=== PATIENT | female | born 1955 | race Caucasian/White ===

== ENCOUNTER 2017-07-01 12:57 | Observation (INO) ==
[2017-07-01] MEDS ORDERED: Nitroglycerin 0.4 MG TAB.SUBL SL PRN ×2 (13:18→15:10)
[2017-07-01] MEDS ORDERED: Aspirin 81 MG TAB.CHEW PO STA (13:18)
--- NOTE | 2017-07-01 13:28 | Emergency Department Note ---
Disposition Clinical Impression: Pneumothorax, Chest pain Disposition: Admitted As Inpatient Condition: Good Reasons to Return/Additional Instructions: Continue to follow through primary care provider for your hypertension. Referrals: NONE,PCP [Primary Care Provider] - Chest Pain HPI - General Chief Complaint: ED Chest Pain Stated Complaint: heartburn Time Seen by Provider: 07/01/17 13:05 Source: patient Mode of arrival: ambulatory Limitations: no limitations Vital Signs Reviewed: Yes Nursing Notes Reviewed: Yes - History of Present Illness HPI Narrative: Patient states his heartburn off and on for the past 2 days. Started on Sunday and she took some antacid that did not seem to help. She could have her 's Zantac that did not help. Today it seemed to becoming more regular and more pressure sensation. She has never had anything like this before. She denies any nausea vomiting shortness of breath or other complaints. Pt complaint: chest pain Onset (ago): day(s) (2) Duration: intermittent Onset: during rest Pain Location: substernal Severity scale (1-10): 4 Quality: tightness, other (pressure) Pain Radiation: none Improves with: nothing Worsens with: nothing Associated symptoms: Denies: nausea, vomiting, diaphoresis, dyspnea, sense of impending doom, syncope, palpitations, fever, cough, leg swelling Treatments prior to arrival chest pain: other (antacids) - Related Data Home Medications Medication Instructions Recorded Confirmed No Known Home Drugs 07/01/17 07/01/17 Allergies Allergy/AdvReac Type Severity Reaction Status Date / Time No Known Allergies Allergy Verified 10/18/16 05:25 All systems ED: reviewed and negative except as stated. Review of Systems: As Per HPI Constitutional: Denies: fever, chills, weakness, weight change Eyes: Denies: eye pain, eye discharge, vision change ENT ED: Denies: ear pain, throat pain, dental pain, hearing loss, epistaxis, congestion, dysphagia Cardiovascular: Reports: as per HPI, chest pain. Denies: palpitations, dyspnea on exertion, edema, syncope Respiratory: Denies: cough, dyspnea, wheezes, hemoptysis, stridor Gastrointestinal: Denies: abdominal pain, nausea, vomiting, diarrhea, constipation, hematemesis, melena, hematochezia Genitourinary: Denies: dysuria, frequency, hematuria, discharge Musculoskeletal: Denies: back pain, neck pain, arthralgia, myalgia Integumentary: Denies: rash, abrasion, lesions Neurological: Denies: headache, weakness, numbness, paresthesias, confusion, abnormal gait, vertigo Psychiatric: Denies: anxiety, depression, suicidal thoughts, homicidal thoughts , auditory hallucinations, visual hallucinations Endocrine: Denies: fatigue Hematological/Lymphatic: Denies: easy bleeding, easy bruising Allergic/Immunologic: Denies: facial swelling, urticaria Chest Pain PMH - Past Medical History Medical history: Reports: hypertension Psychiatric history: Reports: no psych history 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 - Social History Smoking Status: Never smoker Alcohol use: Reports: none Drug use: Reports: none Physical Exam - General Limitations: no limitations General appearance: alert, in no apparent distress - Head Head exam: atraumatic, normocephalic, normal inspection - Eye Eye exam: Present: normal appearance, PERRL, EOMI - ENT ENT exam: normal exam, normal oropharynx, mucous membranes moist - Neck Neck exam: Present: normal inspection, full ROM, trachea midline - Chest Chest inspection: Present: normal inspection, symmetric chest wall rise - Respiratory Respiratory exam: Present: normal lung sounds bilaterally - Cardiovascular Cardiovascular exam: Present: regular rate, normal rhythm, normal heart sounds - Abdominal Exam Abdominal exam: Present: soft, Non-Tender. Absent: tenderness, distention, guarding, rebound, rigidity - Extremities Exam Extremities exam: Present: normal inspection - Back Exam Back exam: Present: normal inspection - Neurological Exam Neurological exam: Present: alert, oriented X3, CN II-XII intact - Psychiatric Psychiatric exam: Present: normal affect, normal mood - Skin Skin exam: Present: warm, dry, intact Course Vital Signs Temperature 97.0 F L 07/01/17 13:11 Pulse Rate 114 07/01/17 13:11 Respiratory Rate 16 07/01/17 13:11 Blood Pressure 170/112 07/01/17 13:11 O2 Sat by Pulse Oximetry 95 07/01/17 13:11 Temperature 97.0 F L 07/01/17 13:11 Pulse Rate 114 07/01/17 13:11 Respiratory Rate 16 07/01/17 13:11 Blood Pressure 170/112 07/01/17 13:11 O2 Sat by Pulse Oximetry 95 07/01/17 13:11 Oxygen Delivery Oxygen Delivery Room Air Chest Pain - MDM Narrative Medical decision making narrative: Case is discussed with hospitalist who accepts admission. - Lab Data Lab results reviewed: Yes I reviewed the patient's lab results. - Radiology Data Radiology results reviewed: Yes I reviewed the patient's radiology results. - EKG Data EKG attestation: Yes I reviewed and interpreted this EKG. EKG results narrative: EKG is a sinus rhythm with a rate of 95 bpm [address] minimal diffuse [address] depression TX interval is 137 ms. QRS duration 91 ms QTc interval 348 ms QTC 401 ms R axis of 70 degrees.
[2017-07-01 13:30] LABS: Basophils # 0.1 K/mcL (0.0-0.2); Eosinophils % 0.5 %; Hematocrit 48.4 % (35.3-44.9); Hemoglobin 16.6 g/dL (11.5-15.4); Immature Granulocytes % 0.4 % (0-4); Lymphocytes # 1.9 K/mcL (0.6-4.6); Lymphocytes % 25.4 %; Mean Corpuscular HGB Conc 34.3 g/dL (31.6-35.5); Mean Corpuscular Hemoglobin 29.4 pg (28.0-33.3); Mean Corpuscular Volume 85.7 fL (83.0-100.0); Mean Platelet Volume 9.8 fL (9.4-12.4); Monocytes # 0.6 K/mcL (0.0-1.3); Monocytes % 7.3 %; Platelet Count 266 K/mcL (140-400); Red Blood Count 5.65 M/mcL (3.82-4.97); Red Cell Distribution Width 12.8 % (11.5-14.5); Segmented Neutrophils % 65.4 %
[2017-07-01] MEDS ORDERED: 0.9 % Sodium Chloride 1,000 ML IVC SCH ×2 (13:30→15:10)
[2017-07-01 13:37] LABS: INR 1.1
[2017-07-01 13:39] LABS: Activated Partial Thrombo Time 33.4 Seconds (26.0-36.0)
[2017-07-01 13:47] LABS: Troponin I < 0.03 ng/mL (< 0.04)
[2017-07-01 13:48] LABS: Alanine Aminotransferase 27 Units/L (7-52); Albumin 4.9 g/dL (3.5-5.7); Albumin/Globulin Ratio 1.5 (1.1-2.2); Alkaline Phosphatase 107 Units/L (34-104); Aspartate Amino Transferase 20 Units/L (13-39); BUN/Creatinine Ratio 20 (6-26); Bilirubin,Total 0.9 mg/dL (0.3-1.0); Blood Urea Nitrogen 16 mg/dL (8-23); Calcium 9.9 mg/dL (8.6-10.3); Carbon Dioxide 28 mEq/L (23-29); Chloride 101 mEq/L (98-107); Globulin 3.3 g/dL (2.4-3.5); Glucose 110 mg/dL (70-105); Osmolality,Calculated 284 (280-300); Potassium 3.8 mEq/L (3.5-5.1); Sodium 136 mEq/L (136-145); Total Protein 8.2 g/dL (6.4-8.9); eGFR For African Americans > 60 (> 60); eGFR For Non-African Americans > 60 (> 60)
[2017-07-01] MEDS ORDERED: Naloxone 0.4 MG/ML INJ IVP PRN (15:10)
[2017-07-01] MEDS ORDERED: Mag Hydrox/Al Hydrox/Simeth 30 ML UDC PO PRN (17:11)
--- NOTE | 2017-07-01 18:00 | Internal Med History&Physical ---
<Aleksandr Larson - Last Filed: 07/01/17 19:38> Date of Encounter: 07/01/17 Internal Medicine - H&P: HPI History of present illness: Ms. Yang is a 61 year old female Internal Medicine - H&P: Meds No Known Home Drugs 07/01/17 [History] 3 Allergy/AdvReac Type Severity Reaction Status Date / Time No Known Allergies Allergy Verified 10/18/16 05:25 All Systems PM: A 10-system review of systems was performed and is negative for pertinent findings except as documented above in the HPI. - Constitutional Vitals: Temp Pulse Resp BP Pulse Ox 98.5 F 93 18 108/80 96 07/01/17 15:16 07/01/17 15:16 07/01/17 15:16 07/01/17 15:16 07/01/17 15:16 Internal Med - H&P Results - Labs CBC & Chem 7: 07/01/17 13:10 07/01/17 13:10 <Ervin Martnies - Last Filed: 07/01/17 22:40> Date of Encounter: 07/01/17 Time of Encounter: 18:00 Assessment and Plan (1) Chest pain Current visit: Yes Status: Acute This is atypical. We will obtain serial troponins and follow, consider outpatient stress test versus cardiology referral. We have encouraged her to follow-up with a family physician. This could be GI in nature as she responded to a PPI, here. Will follow. Qualifiers: Chest pain type: unspecified Qualified Code(s): R07.9 - Chest pain, unspecified (2) Hypertension Current visit: Yes Status: Acute This is somewhat uncertain significance, has had no medication, will follow while here and consider antihypertensive medication versus follow-up with primary care physician. Qualifiers: Hypertension type: essential hypertension Qualified Code(s): I10 - Essential (primary) hypertension Internal Medicine - H&P: HPI Admitted From: Home Plans for Post Hospital Care: Home History of present illness: Ms. Yang is a 61 year old female with history of 2-3 days of heartburn that seemed like acid. However, failed to respond to [id number] antacids and her ranitidine. She felt this developing more of a pressure sensation is concerned about her heart. For this reason, she presented to the [facility] ED for evaluation. She states that she had some associated diaphoresis but no fevers, chills, dyspnea, palpitations, lightheadedness, nausea or vomiting, abdominal pain, change in bowel habits, skin rashes, etc. while here, she was given omeprazole and within a few hours, her symptoms abated. She has never had hypertension in the past. She is concerned because her blood pressure was elevated upon initial evaluation at the ED. She has a full upper plate denture. She has intermittent low back pain which she self treats with [id number] medication. She underwent a complete hysterectomy for this back pain failed to resolve her symptoms. She has no family physician since moving here about 2 years ago. She has never been a smoker and has no family history of coronary artery disease. Patient has no complaint of chest discomfort, dyspnea, orthopnea, palpitations, nausea or vomiting, constipation or diarrhea, other changes in bowel habits, difficulty with urination, rash or itching, or other new complaints. Review of systems is otherwise unremarkable. Past Med Surg Social Fam HX - Past Medical History Psychiatric history: no psych history - Past Surgical History Surgical History: hysterectomy - Social History Smoking Status: Never smoker Alcohol use: none Drug use: none - Family History Mother Living Status: Hx Family GI Disorders: Yes All Systems PM: A 10-system review of systems was performed and is negative for pertinent findings except as documented above in the HPI. - Constitutional Vitals: Temp Pulse Resp BP Pulse Ox 98.5 F 93 18 108/80 96 07/01/17 15:16 07/01/17 15:16 07/01/17 15:16 07/01/17 15:16 07/01/17 15:16 Exam: Examinatioin: (Except as mentioned above): General: In no apparent distress, alert and oriented 3. Head: Atraumatic and normocephalic. Eyes: Extraocular muscles are intact, pupils equal round and reactive to light and accommodation. Sclerae anicteric. Ears: External ears are normal to inspection and hearing is grossly normal. Nose: Patent without lesion noted. Mouth: No intraoral lesions seen. Full upper plate denture. Dentition is unremarkable. Neck: Supple with trachea midline. There is no thyromegaly or adenopathy and carotids are 2+ without bruit heard. Respiratory: No use of accessory muscles. Lungs are clear throughout. Normal airflow. No chest wall tenderness. Cardiovascular: Regular rate and rhythm without murmur appreciated. Abdomen: Bowel sounds are normal. No hepatosplenomegaly masses or tenderness. Obese and therefore difficult to palpate deeply. Extremities: No cyanosis clubbing or edema. Neurological: A and O 3. Cranial nerves II through XII are intact. No focal deficits and no abnormal movements or postures. Skin: Warm and non-diaphoretic with no lesions noted. Breasts, pelvic and rectal: Not examined. Internal Med - H&P Results - Labs CBC & Chem 7: 07/01/17 13:10 07/01/17 13:10
[2017-07-02 05:52] LABS: Basophils # 0.1 K/mcL (0.0-0.2); Basophils % 0.8 %; Eosinophils # 0.1 K/mcL (0.0-0.6); Eosinophils % 0.9 %; Hematocrit 41.7 % (35.3-44.9); Hemoglobin 14.3 g/dL (11.5-15.4); Immature Granulocytes % 0.7 % (0-4); Lymphocytes # 2.5 K/mcL (0.6-4.6); Lymphocytes % 33.4 %; Mean Corpuscular HGB Conc 34.3 g/dL (31.6-35.5); Mean Corpuscular Hemoglobin 29.6 pg (28.0-33.3); Mean Corpuscular Volume 86.3 fL (83.0-100.0); Mean Platelet Volume 9.8 fL (9.4-12.4); Monocytes # 0.6 K/mcL (0.0-1.3); Monocytes % 8.5 %; Neutrophils # 4.2 K/mcL (1.6-8.9); Platelet Count 224 K/mcL (140-400); Red Blood Count 4.83 M/mcL (3.82-4.97); Red Cell Distribution Width 12.8 % (11.5-14.5); Segmented Neutrophils % 55.7 %
[2017-07-02] MEDS ORDERED: *HR* Heparin 5,000 UNIT/ML VIAL SQ SCH (06:00)
[2017-07-02 06:08] LABS: BUN/Creatinine Ratio 18 (6-26); Blood Urea Nitrogen 14 mg/dL (8-23); Calcium 9.3 mg/dL (8.6-10.3); Carbon Dioxide 29 mEq/L (23-29); Chloride 107 mEq/L (98-107); Glucose 92 mg/dL (70-105); Osmolality,Calculated 292 (280-300); Sodium 141 mEq/L (136-145); eGFR For African Americans > 60 (> 60); eGFR For Non-African Americans > 60 (> 60)
[2017-07-02 11:05] VITALS: BP 128/84
--- NOTE | 2017-07-02 12:24 | Discharge Summary ---
- NOTES TO OUTPATIENT PROVIDER Notes to Outpatient Provider: Patient was admitted for rule out [place] due to complaints of epigastric pain. EKG and troponins were negative. Patient was treated with PPI and was pain-free on day of discharge. Patient states history of GERD. Date of Encounter: 07/02/17 Time of Encounter: 12:21 - Discharge Diagnosis (1) Chest pain Priority: Primary Status: Acute Comments: Patient admitted with complaints of epigastric pain. Patient's serial troponins were negative. EKG was negative. Patient was kept on cafeteria monitor which continued to show sinus rhythm without ectopy. Patient denied any dyspnea or palpitations. Patient was started on PPI and within 24 hours denied any further epigastric discomforts. Patient to be discharged to home with recommendations to take Prilosec OTC twice daily. Patient is to establish a PCP for follow-up. Qualifiers: Chest pain type: unspecified Qualified Code(s): R07.9 - Chest pain, unspecified (2) Hypertension Priority: Secondary Status: Acute Comments: Vital signs are stable. Patient is to continue with home medications after discharge. Follow-up with PCP Qualifiers: Hypertension type: essential hypertension Qualified Code(s): I10 - Essential (primary) hypertension Hospital course: Ms. Yang is a 61 year old female who presented to the emergency department with complaints of increasing epigastric pain over the past several days. Patient was admitted for rule out [place]. During her stay in facility she had serial troponins drawn which were all negative. EKG was obtained which showed no ischemic changes or ectopy. Patient was started on PPI and within 24 hours stated that her epigastric pain and resolved. Patient denied any palpitations or further chest discomforts after admission. Denied any dyspnea. Discharge discussed with: patient Time spent discussing smoking cessation with patient: 3 to 10 minutes - Time Spent with Patient Total time spent providing and/or coordinating discharge services: Less than 30 minutes - Discharge Medications Home Medications: No Known Home Drugs 07/01/17 [History] Allergies/Adverse Reactions: 3 Allergy/AdvReac Type Severity Reaction Status Date / Time No Known Allergies Allergy Verified 10/18/16 05:25 Date of admission: 07/01/17 14:53 Primary care physician: PCP NONE Discharging clinician: Ervin Martines - Constitutional Vitals: Temp Pulse Resp BP Pulse Ox 98.1 F 86 18 128/84 96 07/02/17 11:04 07/02/17 11:04 07/02/17 11:04 07/02/17 11:04 07/02/17 11:04 General appearance: Present: A&O X 3, pleasant - Head Head exam: Present: atraumatic, normocephalic - Eye Eye exam: Present: PERRL, conjuntiva pink, sclera anicteric Pupils: Present: PERRL - Neck Neck exam general surgery: Present: supple, trachea midline. Absent: lymphadenopathy - Respiratory Respiratory exam: Present: CTAB. Absent: accessory muscle use, rales, rhonchi, wheezes - Cardiovascular Cardiovascular exam: Present: RRR, +S1, +S2. Absent: diastolic murmur, gallop, rubs, systolic murmur - GI/Abdominal GI/Abdominal exam: Present: normal bowel sounds, soft, no peritoneal signs. Absent: distended, tenderness - Extremities Exam Extremities exam: Present: warm, radial pulses palpable and symmetrical. Absent : calf tenderness, cyanotic, pedal edema - Neurological Exam Neurological exam: Present: CN II-XII intact, oriented X3, no focal deficits. Absent: pronater drift, facial droop, speech deficit - Skin Skin exam: Present: dry, intact - Patient Status Disposition: Home, Self-Care Condition: Good Functional capacity at discharge: independent ambulation Overall status at discharge: patient is progressing back to baseline - Discharge Instructions Follow Up With: NONE,PCP [Primary Care Provider] - Additional Instructions: Continue to follow through primary care provider for your hypertension. - Diet and Activity Activity: resume usual activities as tolerated Diet: advance to your usual diet
--- NOTE | 2017-07-02 20:06 | Electrocardiograph Report ---
[place] [id number] Test Date: 2017-07-01 Pat Name: Colleen Yang Department: 2000 Room: 118 Gender: F Managed Care Coordinator: : 1955 Requested By: Ervin Martines Order Number: [id number] Reading MD: Bobby Meadows MD Measurements Intervals [place] Rate: 95 P: 73 WV: 137 QRS: 7 QRSD: 91 T: 24 QT: 348 QTc: 401 Interpretive Statements SINUS RHYTHM Poor R wave progression Electronically Signed On 07-02-2017 20:04:34 EDT by Bobby Meadows MD
== END 2017-07-02 13:22 | disposition home or self-care (01) ==
LOC: INPGRE 12:57 → EMEROOGRE 12:57 → INPGRE 15:07